=== PATIENT | male | born 1975 | race Caucasian/White ===

== ENCOUNTER → 2019-05-28 | Emergency (ER) | payer MEDICAID ==
[~2019-05-28] VITALS: Ht 182.9 cm; Wt 99.8 kg
[2019-05-28 12:43] VITALS: BP 140/110
== END | disposition home or self-care (01) ==
LOC: EDUNIT# 11:56 → EDBD 12:00 → ER 12:00
DX: F10.129 Alcohol abuse with intoxication, unspecified (principal); F17.210 Nicotine dependence, cigarettes, uncomplicated; Y90.9 Presence of alcohol in blood, level not specified

== ENCOUNTER → 2019-06-27 | Emergency (ER) | payer MEDICAID ==
[~2019-06-27] VITALS: Ht 188 cm; Wt 99.8 kg
[~2019-06-27] MED LIST: FOLIC ACID 1 MG, MULTIPLE VITAMIN 10 ML, MAGNESIUM SULF SDV 50% 8 MEQ, THIAMINE INJ 100... INJ SCH; SODIUM CHLORIDE 0.9% 1,000 ML IVB ONE; THIAMINE 100mg/ml INJ (200mg/2ml VIAL) IV ONE
[2019-06-27 18:34] LABS: Albumin 3.2 g/dL (3.4-5.0); BUN/Creatinine Ratio 4.3; Calcium 8.5 mg/dL (8.5-10.1); Potassium 3.7 mmol/L (3.5-5.1)
[2019-06-27 18:46] LABS: Bilirubin, Total 0.2 mg/dL (0.2-1.0); Total Protein 7.4 g/dL (6.4-8.2)
[2019-06-27 18:48] LABS: Basophils # (auto) 0.1 10 ^3/uL (0-0.2); Monocytes # (auto) 0.5 10 ^3/uL (0-1.3)
[2019-06-27 18:50] LABS: Eosinophils # (auto) 0.3 10 ^3/uL (0-0.8); Eosinophils % (auto) 3.8 % (0.0-7.0); Hematocrit 49.8 % (41.0-53.0); Hemoglobin 17.2 g/dL (13.5-17.5); Lymphocytes # (auto) 3.2 10 ^3/uL (0.4-5.4); Lymphocytes % (auto) 36.9 % (10.0-50.0); Mean Corpuscular Hgb Conc. 34.5 g/dL (32.0-36.0); Mean Corpuscular Volume 104.5 fL (80.0-100.0); Neutrophils # (auto) 4.5 10 ^3/uL (1.6-8.6); Neutrophils % (auto) 52.3 % (37.0-80.0); Nucleated Red Blood Cells % 0.4 %; Platelet Count (auto) 225 10^3/uL (140-450); Red Blood Cells 4.77 10^6/uL (4.5-5.90); Red Cell Distribution Width 16.4 % (11.8-14.3); White Blood Cell 8.6 10^3/uL (4.4-10.8)
[2019-06-27 18:51] LABS: Blood Alcohol 385.8 mg/dL (0-5)
[2019-06-27 20:00] VITALS: BP 122/92
== END | disposition home or self-care (01) ==
LOC: EDUNIT# 17:36 → ER 17:46 → EDBD 17:46
DX: F10.129 Alcohol abuse with intoxication, unspecified (principal); F17.210 Nicotine dependence, cigarettes, uncomplicated; Y90.9 Presence of alcohol in blood, level not specified
CPT/HCPCS: 36415; 70450; 71045; 80053; 80320; 83735; 85025; 99285; J3411; J3475; J7030